=== PATIENT | female | born 1955 | race Caucasian/White ===

== ENCOUNTER 2023-01-06 20:00 | Inpatient (IN) | payer MEDICARE ==
[2023-01-06] MEDS ORDERED: SODIUM CHLORIDE 0.9% 1,000 ML IV ONE (20:21)
--- NOTE | 2023-01-06 20:37 | ED ---
General Adult HPI - General Chief complaint: Recheck/Abnormal Lab/Rx Stated complaint: Lab Recheck Time Seen by Provider: 01/06/23 20:16 Source: patient, EMS Mode of arrival: EMS Limitations: no limitations - History of Present Illness Initial comments: Sondra is a 67-year-old female who presents to the ER as a transfer from outside hospital. Patient was apparently found on her kitchen floor by her this morning. Patient seemed confused and she was taken to the outside hospital for evaluation where she underwent extensive testing including labs head CT and was found to have some significant electrolyte abnormalities. Considering these abn ormalities of his recommend she be transferred here for evaluation. Patient does note that she had a GI illness on Saturday and Saturday she was having diarrhea and not eating or drinking much. She hasn't had persistent symptoms today however does feel generally weak and unwell. - Related Data Home Medications Medication Instructions Recorded Confirmed ALPRAZolam [Xanax] 1 mg PO TID 01/06/23 01/06/23 Anastrozole 1 mg PO DAILY 01/06/23 01/06/23 Aspirin 81 mg PO DAILY 01/06/23 01/06/23 Atorvastatin [Lipitor] 80 mg PO DAILY 01/06/23 01/06/23 Chlorthalidone 25 mg PO DAILY 01/06/23 01/06/23 Metoprolol Succinate [Toprol XL] 50 mg PO DAILY 01/06/23 01/06/23 Omeprazole 20 mg PO DAILY 01/06/23 01/06/23 Potassium Chloride ER [K-Dur 10] 10 meq PO DAILY 01/06/23 01/06/23 Sertraline [Zoloft] 150 mg PO DAILY 01/06/23 01/06/23 amLODIPine [Norvasc] 10 mg PO DAILY 01/06/23 01/06/23 busPIRone HCL 15 mg PO TID 01/06/23 01/06/23 lisinopriL 40 mg PO DAILY 01/06/23 01/06/23 Allergies Allergy/AdvReac Type Severity Reaction Status Date / Time amoxicillin Allergy Anaphylaxis Verified 01/06/23 21:50 ampicillin Allergy Anaphylaxis Verified 01/06/23 21:50 Review of Systems ROS Statement: Those systems with pertinent positive or pertinent negative responses have been documented in the HPI. ROS Other: All systems not noted in ROS Statement are negative. Past Medical History Past Medical History: Hypertension Additional Past Medical History / Comment(s): low potassium History of Any Multi-Drug Resistant Organisms: None Reported Past Surgical History: Cholecystectomy Past Psychological History: Anxiety Smoking Status: Current every day smoker Past Alcohol Use History: None Reported Past Drug Use History: None Reported General Exam Limitations: no limitations Head exam: Present: atraumatic, normocephalic Eye exam: Present: normal appearance ENT exam: Present: normal exam Neck exam: Present: normal inspection Respiratory exam: Absent: respiratory distress Cardiovascular Exam: Present: regular rate GI/Abdominal exam: Present: soft Extremities exam: Present: normal inspection Neurological exam: Present: alert, oriented X3 Psychiatric exam: Present: normal affect, normal mood Skin exam: Present: warm, dry Course Vital Signs 01/06/23 01/06/23 20:06 22:41 Temperature 98.2 F Pulse Rate 72 73 Respiratory 18 18 Rate Blood Pressure 142/88 113/70 O2 Sat by Pulse 96 95 Oximetry EKG Findings - EKG Comments: EKG Findings:: EKG obtained due to lab abnormalities EKG obtained at 2101, rate is 68 rhythm is sinus MN 170 QRS 110 QTC 471 there are no acute ST elevations or depressions are is no evidence of acute ischemia or infarction. Medical Decision Making - Medical Decision Making Was pt. sent in by a medical professional or institution (KAHLIL Bryan, MDS MANAGER, urgent care, hospital, or shelter...) When possible be specific @ -Yes, transfer from [place] Did you speak to anyone other than the patient for history (EMS, parent, family, police, friend...)? What history was obtained from this source @ -Transferring Physician, EMS, Did you review nursing and triage notes (agree or disagree)? Why? @ -I reviewed and agree with nursing and triage notes Were old charts reviewed (outside hosp., previous admission, EMS record, old EKG, old radiological studies, urgent care reports/EKG's, shelter records)? Report findings @ -No old charts were reviewed Differential Diagnosis (chest pain, altered mental status, abdominal pain women, abdominal pain men, vaginal bleeding, weakness, fever, dyspnea, syncope, headache, dizziness, GI bleed, back pain, seizure, CVA, palpatations, mental health, musculoskeletal)? @ -Differential Altered Mental Status: Hypoglycemia, DKA, hypercapnia, ETOH, overdose, CO poisoning, trauma, myxedema coma, HTN encephalopathy, infection, encephalitis, psychosis, intercranial hemorrhage, hepatic encephalopathy, meningitis, CVA, this is not meant to be an all-inclusive list EKG interpreted by me (3pts min.). @ -As above X-rays interpreted by me (1pt min.). @ -None done CT interpreted by me (1pt min.). @ -Outside CT revealed no acute findings U/S interpreted by me (1pt. min.). @ -None done What testing was considered but not performed or refused? (CT, X-rays, U/S, labs)? Why? @ -None What meds were considered but not given or refused? Why? @ -None Did you discuss the management of the patient with other professionals (professionals i.e. , PA, MDS MANAGER, lab, RT, psych nurse, social service technician, clerical adviser, teacher, aoc airspace control officer, patient case coordinator)? Give summary @ -Discussed with transferring physician as well as accepting physician Dr. Russell Was smoking cessation discussed for >3mins.? @ -No Was critical care preformed (if so, how long)? @ -Yes Were there social determinants of health that impacted care today? How? (Homelessness, low income, unemployed, alcoholism, drug addiction, transportation, low edu. Level, literacy, decrease access to med. care, [facility], rehab)? @ -No Was there de-escalation of care discussed even if they declined (Discuss DNR or withdrawal of care, Hospice)? DNR status @ -No What co-morbidities impacted this encounter? (DM, HTN, Smoking, COPD, CAD, Cancer, CVA, ARF, Chemo, Hep., AIDS, mental health diagnosis, sleep apnea, morbid obesity)? @ -None Was patient admitted / discharged? Hospital course, mention meds given and route, prescriptions, significant lab abnormalities, going to OR and other pertinent info. @ -Admit Patient was transferred from outside facility where she was found to have altered mental status and significant electrolyte abnormalities. High suspicion that the patient had a seizure secondary to hyponatremia. Outside facility sodium was 117 and potassium was 2.2 she received IV replacements and was transferred here. Upon arrival repeat labs were obtained, sodium is only improved minimally is now 119, potassium has improved. Transaminitis is worsening. These results were discussed with Dr. Russell who agrees with plan for admission, gentle IV hydration for slow correction of hyponatremia and hypokalemia. Admission with consult to GI and nephrology. Undiagnosed new problem with uncertain prognosis? @ -Yes Drug Therapy requiring intensive monitoring for toxicity (Heparin, Nitro, I nsulin, Cardizem)? @ -No Were any procedures done? @ -No Diagnosis/symptom? @ -Hyponatremia, hypokalemia, hypochloremia Acute, or Chronic, or Acute on Chronic? @ -Acute Uncomplicated (without systemic symptoms) or Complicated (systemic symptoms)? @ -Located Side effects of treatment? @ -No Exacerbation, Progression, or Severe Exacerbation? @ -No Poses a threat to life or bodily function? How? (Chest pain, USA, CO, pneumonia, PE, COPD, DKA, ARF, appy, cholecystitis, CVA, Diverticulitis, Homicidal, Suicidal, threat to staff... and all critical care pts) @ -Yes, resulting in neurologic changes, seizure - Lab Data Result diagrams: 01/06/23 20:38 01/06/23 21:41 Lab Results 01/06/23 01/06/23 01/06/23 Range/Units 20:38 20:38 20:38 WBC 13.3 H (3.8-10.6) k/uL RBC 4.45 (3.80-5.40) m/uL Hgb 14.0 (11.4-16.0) gm/dL Hct 38.6 (34.0-46.0) % MCV 86.8 (80.0-100.0) fL MCH 31.5 (25.0-35.0) pg MCHC 36.3 (31.0-37.0) g/dL RDW 12.3 (11.5-15.5) % Plt Count 357 (150-450) k/uL MPV 7.0 Neutrophils % 84 % Lymphocytes % 9 % Monocytes % 6 % Eosinophils % 1 % Basophils % 0 % Neutrophils # 11.2 H (1.3-7.7) k/uL Lymphocytes # 1.2 (1.0-4.8) k/uL Monocytes # 0.8 (0-1.0) k/uL Eosinophils # 0.1 (0-0.7) k/uL Basophils # 0.0 (0-0.2) k/uL Hyperchromasia Moderate PT 11.2 (10.0-12.5) sec INR 1.0 (<1.2) APTT 24.4 (22.0-30.0) sec Sodium (137-145) mmol/L Potassium (3.5-5.1) mmol/L Chloride (98-107) mmol/L Carbon Dioxide (22-30) mmol/L Anion Gap mmol/L BUN (7-17) mg/dL Creatinine (0.52-1.04) mg/dL Est GFR (CKD-EPI)AfAm (>60 ml/min/1.73 sqM) Est GFR (CKD-EPI)NonAf (>60 ml/min/1.73 sqM) Glucose (74-99) mg/dL Calcium (8.4-10.2) mg/dL Magnesium (1.6-2.3) mg/dL Total Bilirubin (0.2-1.3) mg/dL AST (14-36) U/L ALT (4-34) U/L Alkaline Phosphatase (38-126) U/L Ammonia (<30) umol/L Troponin I (0.000-0.034) ng/mL Total Protein (6.3-8.2) g/dL Albumin (3.5-5.0) g/dL Urine Opiates Screen Not Detected (NotDetected) Ur Oxycodone Screen Not Detected (NotDetected) Urine Methadone Screen Not Detected (NotDetected) Ur Propoxyphene Screen Not Detected (NotDetected) Ur Barbiturates Screen Not Detected (NotDetected) U Tricyclic Antidepress Not Detected (NotDetected) Ur Phencyclidine Scrn Not Detected (NotDetected) Ur Amphetamines Screen Not Detected (NotDetected) U Methamphetamines Scrn Not Detected (NotDetected) U Benzodiazepines Scrn Not Detected (NotDetected) Urine Cocaine Screen Not Detected (NotDetected) U Marijuana (THC) Screen Not Detected (NotDetected) Serum Alcohol mg/dL 01/06/23 01/06/23 01/06/23 Range/Units 20:38 21:41 21:41 WBC (3.8-10.6) k/uL RBC (3.80-5.40) m/uL Hgb (11.4-16.0) gm/dL Hct (34.0-46.0) % MCV (80.0-100.0) fL MCH (25.0-35.0) pg MCHC (31.0-37.0) g/dL RDW (11.5-15.5) % Plt Count (150-450) k/uL MPV Neutrophils % % Lymphocytes % % Monocytes % % Eosinophils % % Basophils % % Neutrophils # (1.3-7.7) k/uL Lymphocytes # (1.0-4.8) k/uL Monocytes # (0-1.0) k/uL Eosinophils # (0-0.7) k/uL Basophils # (0-0.2) k/uL Hyperchromasia PT (10.0-12.5) sec INR (<1.2) APTT (22.0-30.0) sec Sodium 119 L* (137-145) mmol/L Potassium 3.2 L (3.5-5.1) mmol/L Chloride 80 L (98-107) mmol/L Carbon Dioxide 34 H (22-30) mmol/L Anion Gap 5 mmol/L BUN 24 H (7-17) mg/dL Creatinine 0.50 L (0.52-1.04) mg/dL Est GFR (CKD-EPI)AfAm >90 (>60 ml/min/1.73 sqM) Est GFR (CKD-EPI)NonAf >90 (>60 ml/min/1.73 sqM) Glucose 112 H (74-99) mg/dL Calcium 9.6 (8.4-10.2) mg/dL Magnesium 1.7 (1.6-2.3) mg/dL Total Bilirubin 0.8 (0.2-1.3) mg/dL AST 960 H (14-36) U/L ALT 388 H (4-34) U/L Alkaline Phosphatase 70 (38-126) U/L Ammonia 21 (<30) umol/L Troponin I 0.032 (0.000-0.034) ng/mL Total Protein 6.5 (6.3-8.2) g/dL Albumin 3.9 (3.5-5.0) g/dL Urine Opiates Screen (NotDetected) Ur Oxycodone Screen (NotDetected) Urine Methadone Screen (NotDetected) Ur Propoxyphene Screen (NotDetected) Ur Barbiturates Screen (NotDetected) U Tricyclic Antidepress (NotDetected) Ur Phencyclidine Scrn (NotDetected) Ur Amphetamines Screen (NotDetected) U Methamphetamines Scrn (NotDetected) U Benzodiazepines Scrn (NotDetected) Urine Cocaine Screen (NotDetected) U Marijuana (THC) Screen (NotDetected) Serum Alcohol <10 mg/dL - EKG Data -: EKG Interpreted by Me Disposition Clinical Impression: Hypokalemia, Hyponatremia, Altered mental state, Hypochloremia, Transaminitis Disposition: ADMITTED IP TO THIS [facility] Condition: Serious Is patient prescribed a controlled substance at d/c from ED?: No Referrals: Sarah Bonilla FNPBC [Primary Care Provider] - 1-2 days
--- NOTE | 2023-01-06 20:57 | XR ---
EXAMINATION TYPE: XR chest 2V DATE OF EXAM: 01/06/2023 8:53 PM CLINICAL INDICATION:Female, 67 years old with history of altered mental status; COMPARISON: None TECHNIQUE: XR chest 2V Frontal and lateral views of the chest. FINDINGS: Lungs/Pleura: There is flattening of the diaphragm with increased lucency of the lungs. No evidence o f pneumothorax, pleural effusion or focal consolidation. Pulmonary vascularity: Unremarkable. Heart/mediastinum: Cardiomediastinal silhouette is unremarkable. Musculoskeletal: No acute osseous pathology. Scoliosis changes of the spine. IMPRESSION: 1. No acute cardiopulmonary disease process. 2. COPD changes.
[2023-01-06 21:26] LABS: Basophils % (A) 0 %; Eosinophils # (A) 0.1 k/uL (0-0.7); Eosinophils % (A) 1 %; HCT 38.6 % (34.0-46.0); Hyperchromasia Moderate; Lymphocytes # (A) 1.2 k/uL (1.0-4.8); Lymphocytes % (A) 9 %; MCH 31.5 pg (25.0-35.0); MCHC 36.3 g/dL (31.0-37.0); MCV 86.8 fL (80.0-100.0); Monocytes # (A) 0.8 k/uL (0-1.0); Monocytes % (A) 6 %; Neutrophils # (A) 11.2 k/uL (1.3-7.7); Neutrophils % (A) 84 %; Platelet Count 357 k/uL (150-450); RBC 4.45 m/uL (3.80-5.40); RDW 12.3 % (11.5-15.5); WBC 13.3 k/uL (3.8-10.6)
[2023-01-06 21:39] LABS: Amphetamine Screen,Urine Not Detected (NotDetected); Barbiturate Screen,Urine Not Detected (NotDetected); Benzodiazepines Screen,Urine Not Detected (NotDetected); Cocaine Screen,Urine Not Detected (NotDetected); Methadone Screen, Urine Not Detected (NotDetected); Opiate Screen,Urine Not Detected (NotDetected); Oxycodone Screen, Urine Not Detected (NotDetected); Phencyclidine Screen,Urine Not Detected (NotDetected); Tricyclic Antidepressant,Urine Not Detected (NotDetected); Urn Cannabinoid Scrn Not Detected (NotDetected)
[2023-01-06 21:57] LABS: Partial Thromboplastin Time 24.4 sec (22.0-30.0); Prothrombin Time 11.2 sec (10.0-12.5)
[2023-01-06 22:31] LABS: ALT 388 U/L (4-34); African American GFR (CKD) >90 (>60 ml/min/1.73 sqM); Albumin 3.9 g/dL (3.5-5.0); Alcohol <10 mg/dL; Alkaline Phosphatase 70 U/L (38-126); Anion Gap 5 mmol/L; Blood Urea Nitrogen 24 mg/dL (7-17); Calcium 9.6 mg/dL (8.4-10.2); Carbon Dioxide 34 mmol/L (22-30); Chloride 80 mmol/L (98-107); Glucose 112 mg/dL (74-99); Magnesium 1.7 mg/dL (1.6-2.3); Non-African American GFR(CKD) >90 (>60 ml/min/1.73 sqM); Potassium 3.2 mmol/L (3.5-5.1); Total Bilirubin 0.8 mg/dL (0.2-1.3); Total Protein 6.5 g/dL (6.3-8.2)
[2023-01-06 22:43] LABS: AST 960 U/L (14-36); Sodium 119 mmol/L (137-145)
[2023-01-06] MEDS ORDERED: NALOXONE 0.4 MG/ML 1 ML VIAL IV PRN (22:57)
[2023-01-06] MEDS: POTASSIUM CHLORIDE 10 MEQ in WATER FOR INJECTION 1 100ML.BAG IVPB SCH (23:35)
[2023-01-07] MEDS: POTASSIUM CHLORIDE 10 MEQ in WATER FOR INJECTION 1 100ML.BAG IVPB SCH ×2 (00:43→03:02)
[2023-01-07 05:45] LABS: ALT 368 U/L (4-34); African American GFR (CKD) >90 (>60 ml/min/1.73 sqM); Albumin 3.9 g/dL (3.5-5.0); Alkaline Phosphatase 49 U/L (38-126); Anion Gap 7 mmol/L; Blood Urea Nitrogen 17 mg/dL (7-17); Calcium 9.3 mg/dL (8.4-10.2); Carbon Dioxide 32 mmol/L (22-30); Chloride 83 mmol/L (98-107); Glucose 92 mg/dL (74-99); Non-African American GFR(CKD) >90 (>60 ml/min/1.73 sqM); Potassium 2.9 mmol/L (3.5-5.1); Sodium 122 mmol/L (137-145); Total Bilirubin 0.8 mg/dL (0.2-1.3); Total Protein 6.3 g/dL (6.3-8.2)
[2023-01-07 05:53] LABS: AST 785 U/L (14-36)
[2023-01-07] MEDS ORDERED: Potassium Replacement Protocol 1 EACH MISC MISCELLANE PRN (05:56)
[2023-01-07] MEDS: POTASSIUM CHLORIDE ER 20 MEQ TAB.ER PO SCH ×3 (06:04→09:28)
[2023-01-07] MEDS ORDERED: ONDANSETRON 4 MG/2 ML VIAL IVP PRN (09:41)
[2023-01-07 11:05] LABS: Hepatitis A Antibody IgM Nonreactive; Hepatitis B Core IgM Nonreactive; Hepatitis B Surface Antigen Nonreactive; Hepatitis C IgG Antibody Nonreactive
[2023-01-07] MEDS: SODIUM CHLORIDE 0.9% 1,000 ML IV SCH ×3 (11:56→21:45)
[2023-01-07] MEDS: POTASSIUM CHLORIDE ER 10 MEQ TAB.ER.PRT PO SCH (11:56)
[2023-01-07] MEDS: amLODIPine 10 MG TAB PO SCH (11:58)
[2023-01-07] MEDS: PANTOPRAZOLE 40 MG TABLET PO SCH (11:58)
[2023-01-07] MEDS: ASPIRIN 81 MG PO SCH (11:58)
[2023-01-07] MEDS: METOPROLOL SUCCINATE (ER) 50 MG TAB.ER.24H PO SCH (11:58)
--- NOTE | 2023-01-07 11:58 | P.NPCON ---
History of Present Illness - Reason for Consult hyponatremia - History of Present Illness Patient is a 67-year-old female who was transferred from an outside facility. Patient was brought into the hospital due to mental status changes. Patient was apparently found by her on the floor. She has been confused. Patient complained of increased weakness but is not able to give a detailed history. Patient denied any history of nausea vomiting but did admit to having had diarrhea for about 2 days. No history of fever Patient is maintained on chlorthalidone which she has been taking for about 1 ye ar according to the patient. Patient is noted to have a serum sodium of 119. She received IV fluids and sodium has increased to 122. Systolic blood pressure around 102-120 mmHg. Review of Systems As per HPI Past Medical History Past Medical History: Hypertension Additional Past Medical History / Comment(s): low potassium History of Any Multi-Drug Resistant Organisms: None Reported Past Surgical History: Cholecystectomy Past Psychological History: Anxiety Smoking Status: Current every day smoker Past Alcohol Use History: None Reported Past Drug Use History: None Reported Medications and Allergies Home Medications Medication Instructions Recorded Confirmed Type ALPRAZolam [Xanax] 1 mg PO TID 01/06/23 01/06/23 History Anastrozole 1 mg PO DAILY 01/06/23 01/06/23 History Aspirin 81 mg PO DAILY 01/06/23 01/06/23 History Atorvastatin [Lipitor] 80 mg PO DAILY 01/06/23 01/06/23 History Chlorthalidone 25 mg PO DAILY 01/06/23 01/06/23 History Metoprolol Succinate [Toprol XL] 50 mg PO DAILY 01/06/23 01/06/23 History Omeprazole 20 mg PO DAILY 01/06/23 01/06/23 History Potassium Chloride ER [K-Dur 10] 10 meq PO DAILY 01/06/23 01/06/23 History Sertraline [Zoloft] 150 mg PO DAILY 01/06/23 01/06/23 History amLODIPine [Norvasc] 10 mg PO DAILY 01/06/23 01/06/23 History busPIRone HCL 15 mg PO TID 01/06/23 01/06/23 History lisinopriL 40 mg PO DAILY 01/06/23 01/06/23 History Allergies Allergy/AdvReac Type Severity Reaction Status Date / Time amoxicillin Allergy Anaphylaxis Verified 01/06/23 21:50 ampicillin Allergy Anaphylaxis Verified 01/06/23 21:50 Physical Exam Vitals: Vital Signs Temp Pulse Pulse Resp BP BP Pulse Ox 01/07/23 08:24 66 20 131/84 95 01/07/23 04:00 98.1 F 71 14 131/77 95 01/07/23 00:00 67 16 102/65 96 01/06/23 23:36 67 18 124/76 94 L 01/06/23 22:41 73 18 113/70 95 01/06/23 20:06 98.2 F 72 18 142/88 96 Intake and Output 01/06/23 01/07/23 01/07/23 22:59 06:59 14:59 Intake Total 825 Balance 825 Intake: Intake, IV Titration 825 Amount Potassium Chloride 10 meq 300 In Water For Injection 1 100ml.bag @ 100 mls/hr IVPB Q1H [facility] Rx#: [id number] Sodium Chloride 0.9% 1, 525 000 ml @ 75 mls/hr IV . [id number] ONE Rx#:[id number] Other: Voiding Method Toilet # Voids 3 Weight 52.163 kg Patient is awake, comfortable, in no acute distress Examination of the heart S1 and S2 Examination of the lungs bilateral breath sounds are heard Abdomen is soft nontender Examination of lower extremities shows no evidence of edema CONFERENCE PRODUCER exam grossly intact. Patient is answering questions appropriately. Results - Lab Results Most recent lab results Calcium 9.3 mg/dL (8.4-10.2) 01/07/23 04:44 Magnesium 1.7 mg/dL (1.6-2.3) 01/06/23 21:41 01/06/23 20:38 01/07/23 10:45 Assessment and Plan Assessment: 1. Hyponatremia appears hypovolemic and improved with normal saline. Patient will also maintained on chlorthalidone which is currently on hold. Urine osmolality and urine sodium is pending. 2. Hypokalemia secondary to diarrhea, diuretics and decrease intake, status post replacement 3. Metabolic alkalosis secondary to volume contraction and diuretics 4. Elevated liver enzymes possibly shock liver. Patient was maintained on statins which are currently on hold. Plan: Continue with saline as serum sodium improved with saline administration initially. Check random urine sodium and urine osmolality Check random cortisol level Continue to hold chlorthalidone. Repeat potassium later this afternoon. Next Thank you for the consultation. We will continue to follow the patient with you during her hospitalization.
--- NOTE | 2023-01-07 13:34 | P.HPIM ---
History of Present Illness H&P Date: 01/07/23 Chief Complaint: Confusion * 67-year-old lady with past medical history significant for hypertension, history of breast cancer presented to the emergency department with episode of confusion. Patient was apparently at home when she was found on the floor by her . And confused. Patient had complaints of increased weakness. Patient denies passing out. She does mention that she does remember the events from home however she does not feel she fell. Patient denies any history of headache, nausea, vomiting, diarrhea abdominal pain. * Workup initiated in ER included basic metabolic panel which showed significant hyponatremia sodium of 119, potassium of 3.2 BUN of 24 creatinine 0.5 * She was noted to have significant elevation in liver profile AST 388 AST of 960 * Troponin obtained was within normal limits * TSH and cortisol levels within normal limits urine drug screen negative * she at time of evaluation in ER was alert and oriented to person place and situation mentation had improved patient was requesting her Xanax REVIEW OF SYSTEMS: Fall, confusion CONSTITUTIONAL: No fever, no malaise, no fatigue. HEENT: No recent visual problems or hearing problems. Denied any sore throat. CARDIOVASCULAR: No chest pain, orthopnea, PND, no palpitations, no syncope. PULMONARY: No shortness of breath, no cough, no hemoptysis. GASTROINTESTINAL: No diarrhea, no nausea, no vomiting, no abdominal pain. NEUROLOGICAL: No headaches, no weakness, no numbness. HEMATOLOGICAL: Denies any bleeding or petechiae. GENITOURINARY: Denies any burning micturition, frequency, or urgency. MUSCULOSKELETAL/RHEUMATOLOGICAL: Denies any joint pain, swelling, or any muscle pain. ENDOCRINE: Denies any polyuria or polydipsia. PHYSICAL EXAMINATION: GENERAL: The patient is alert and oriented x 3, Well developed, well nourished. HEENT: Pupils are round and equally reacting to light. EOMI.. CARDIOVASCULAR: S1 and S2 present. No murmurs, rubs, or gallops. PULMONARY: Chest is clear to auscultation, no wheezing or crackles. ABDOMEN: Soft, nontender, nondistended, normoactive bowel sounds. No palpable organomegaly. MUSCULOSKELETAL: No joint swelling or deformity. EXTREMITIES: No cyanosis, clubbing, or pedal edema. NEUROLOGICAL: Gross neurological examination did not reveal any focal deficits. SKIN: No rashes. Past Medical History Past Medical History: Hypertension Additional Past Medical History / Comment(s): low potassium History of Any Multi-Drug Resistant Organisms: None Reported Past Surgical History: Cholecystectomy Past Psychological History: Anxiety Smoking Status: Current every day smoker Past Alcohol Use History: None Reported Past Drug Use History: None Reported Medications and Allergies Home Medications Medication Instructions Recorded Confirmed Type ALPRAZolam [Xanax] 1 mg PO TID 01/06/23 01/06/23 History Anastrozole 1 mg PO DAILY 01/06/23 01/06/23 History Aspirin 81 mg PO DAILY 01/06/23 01/06/23 History Atorvastatin [Lipitor] 80 mg PO DAILY 01/06/23 01/06/23 History Chlorthalidone 25 mg PO DAILY 01/06/23 01/06/23 History Metoprolol Succinate [Toprol XL] 50 mg PO DAILY 01/06/23 01/06/23 History Omeprazole 20 mg PO DAILY 01/06/23 01/06/23 History Potassium Chloride ER [K-Dur 10] 10 meq PO DAILY 01/06/23 01/06/23 History Sertraline [Zoloft] 150 mg PO DAILY 01/06/23 01/06/23 History amLODIPine [Norvasc] 10 mg PO DAILY 01/06/23 01/06/23 History busPIRone HCL 15 mg PO TID 01/06/23 01/06/23 History lisinopriL 40 mg PO DAILY 01/06/23 01/06/23 History Allergies Allergy/AdvReac Type Severity Reaction Status Date / Time amoxicillin Allergy Anaphylaxis Verified 01/06/23 21:50 ampicillin Allergy Anaphylaxis Verified 01/06/23 21:50 Physical Exam Vitals: Vital Signs Temp Pulse Pulse Resp BP BP Pulse Ox 01/07/23 12:03 67 20 128/70 96 01/07/23 08:24 66 20 131/84 95 01/07/23 04:00 98.1 F 71 14 131/77 95 01/07/23 00:00 67 16 102/65 96 01/06/23 23:36 67 18 124/76 94 L 01/06/23 22:41 73 18 113/70 95 01/06/23 20:06 98.2 F 72 18 142/88 96 Intake and Output 10/22/23 10/23/23 10/23/23 22:59 06:59 14:59 Intake Total 825 Balance 825 Intake: Intake, IV Titration 825 Amount Potassium Chloride 10 meq 300 In Water For Injection 1 100ml.bag @ 100 mls/hr IVPB Q1H [facility] Rx#: [id number] Sodium Chloride 0.9% 1, 525 000 ml @ 75 mls/hr IV . [id number] ONE Rx#:[id number] Other: Voiding Method Toilet # Voids 3 Weight 52.163 kg Results CBC & Chem 7: 01/06/23 20:38 01/07/23 10:45 Labs: Abnormal Lab Results - Last 24 Hours (Table) 01/06/23 01/06/23 01/07/23 Range/Units 20:38 21:41 04:44 WBC 13.3 H (3.8-10.6) k/uL Neutrophils # 11.2 H (1.3-7.7) k/uL Sodium 119 L* 122 L (137-145) mmol/L Potassium 3.2 L 2.9 L (3.5-5.1) mmol/L Chloride 80 L 83 L (98-107) mmol/L Carbon Dioxide 34 H 32 H (22-30) mmol/L BUN 24 H (7-17) mg/dL Creatinine 0.50 L 0.49 L (0.52-1.04) mg/dL Glucose 112 H (74-99) mg/dL AST 960 H 785 H (14-36) U/L ALT 388 H 368 H (4-34) U/L 01/07/23 Range/Units 10:45 WBC (3.8-10.6) k/uL Neutrophils # (1.3-7.7) k/uL Sodium 122 L (137-145) mmol/L Potassium (3.5-5.1) mmol/L Chloride (98-107) mmol/L Carbon Dioxide (22-30) mmol/L BUN (7-17) mg/dL Creatinine (0.52-1.04) mg/dL Glucose (74-99) mg/dL AST (14-36) U/L ALT (4-34) U/L Thrombosis Risk Factor Assmnt - DVT/VTE Prophylaxis DVT/VTE Prophylaxis: Pharmacologic Prophylaxis ordered, Mechanical Prophylaxis ordered Assessment and Plan Assessment: Assessment and plan * Syncopal episode with hyponatremia * Elevated liver profile * Hypertension * History of anxiety * History of breast cancer status post treatment * In regards to acute hyponatremia patient started on IV fluids, nephrology consulted continue to monitor electrolyte stock hanger for worsening or overcorrection of sodium levels * In regards to hypertension continue metoprolol, chlorthalidone placed on hold since it can contribute to hyponatremia * In regards to elevated liver profile, hepatitis screen negative, ultrasound abdomen ordered gastroenterology consulted will follow-up on CMP and PT/INR levels * In regards to anxiety continue patient on BuSpar, Zoloft and Xanax * Need physical therapy occupational therapy evaluation * Status is full code
[2023-01-07] MEDS: ALPRAZolam 1 MG TAB PO SCH ×3 (13:50→21:43)
--- NOTE | 2023-01-07 14:06 | US ---
EXAMINATION TYPE: US abdomen limited DATE OF EXAM: 01/07/2023 COMPARISON: NONE CLINICAL INDICATION: Female, 67 years old with history of Transaminitis; Transaminitis. Hx cholecyste ctomy. *RUQ for liver evaluation per RN. TECHNIQUE: Multiple sonographic images of the right upper quadrant are obtained. FINDINGS: EXAM MEASUREMENTS: Liver Length: 16.1 cm Gallbladder Wall: Surgically absent. CBD: 0.49 cm Right Kidney: 11.1 x 5.6 x 4.5 cm SLAT BASKET MAKER NOTES: Exam is limited due to gas. Pancreas: Slightly limited visibility. Liver: Appears coarse in echotexture. Gallbladder: Surgically absent. Evidence for sonographic Izquierdo's sign: No CBD: Appears wnl Right Kidney: *Complex area seen at mid: 1.2 x 0.9 x 1.0 cm. *Hyperechoic focus seen at mid: 0.2 x 0.2 x 0.4 cm. Incidental finding: proximal and mid aorta appear ectatic, proximal segment measures = 2.9 x 2.9 cm IMPRESSION: 1. Coarsened echotexture to liver. Correlate with serum markers for hepatocellular disease. No evide nce for ductal dilation. 2. Right renal complex cyst with septation. 3. Right renal cortical calcification. 4. Abdominal aortic fusiform dilation measuring up to 2.9 cm
[2023-01-07] MEDS ORDERED: ALPRAZolam 1 MG TAB PO SCH (16:00)
[2023-01-07] MEDS: NICOTINE 21MG/24HR PATCH TRANSDERM SCH (18:45)
[2023-01-07] MEDS: busPIRone HCl 10 MG TAB PO SCH ×2 (18:45→21:43)
[2023-01-08] MEDS: ALPRAZolam 1 MG TAB PO SCH ×3 (08:39→21:34)
[2023-01-08] MEDS: METOPROLOL SUCCINATE (ER) 50 MG TAB.ER.24H PO SCH (08:39)
[2023-01-08] MEDS: POTASSIUM CHLORIDE ER 10 MEQ TAB.ER.PRT PO SCH (08:39)
[2023-01-08] MEDS: busPIRone HCl 10 MG TAB PO SCH ×3 (08:39→21:38)
[2023-01-08] MEDS: PANTOPRAZOLE 40 MG TABLET PO SCH (08:39)
[2023-01-08] MEDS: ASPIRIN 81 MG PO SCH (08:39)
[2023-01-08] MEDS: ANASTROZOLE 1 MG TAB PO SCH (08:40)
[2023-01-08] MEDS: amLODIPine 10 MG TAB PO SCH (08:40)
[2023-01-08] MEDS: SERTRALINE 100 MG TAB PO SCH (08:40)
[2023-01-08] MEDS: ENOXAPARIN 40 MG/0.4 ML SYRINGE SQ SCH (08:40)
[2023-01-08] MEDS: NICOTINE 21MG/24HR PATCH TRANSDERM SCH (08:41)
[2023-01-08 10:52] LABS: Basophils # (A) 0.01 X 10*3/uL (0.00-0.10); Basophils % (A) 0.1 %; Eosinophils % (A) 1.4 %; HCT 37.3 % (37.2-46.3); HGB 13.6 d/dL (12.0-15.0); Lymphocytes # (A) 1.03 X 10*3/uL (0.90-5.00); Lymphocytes % (A) 14.3 %; MCH 31.6 pg (27.0-32.0); MCHC 36.5 d/dL (32.0-37.0); MCV 86.7 FL (80.0-97.0); Mean Platelet Volume 8.4 FL (9.5-12.2); Monocytes # (A) 0.79 X 10*3/uL (0.20-1.00); Monocytes % (A) 10.9 %; NRBC Per 100 WBC 0 X 10*3/uL (0.00-0.01); Neutrophils # (A) 5.27 X 10*3/uL (1.80-7.70); Platelet Count 373 X 10*3/uL (140-440); RDW 12.7 % (11.5-14.5); WBC 7.22 X 10*3/uL (4.50-10.00)
[2023-01-08 11:05] LABS: ALT 298 U/L (8-44); AST 366 U/L (13-35); Albumin/Globulin Ratio 2.22 Ratio (1.60-3.17); Alkaline Phosphatase 46 U/L (41-126); Calcium 9.1 mg/dL (8.7-10.3); Chloride 94 mmol/L (96-109); Globulin 1.8 d/dL (1.6-3.3); Glucose 94 mg/dL (70-110); Sodium 133 mmol/L (135-145); Total Bilirubin 0.6 mg/dL (0.3-1.2); Total Protein 5.8 d/dL (6.2-8.2)
[2023-01-08 11:11] LABS: Potassium 3.3 mmol/L (3.5-5.1)
[2023-01-08] MEDS: SODIUM CHLORIDE 0.9% 1,000 ML IV SCH (11:41)
--- NOTE | 2023-01-08 12:01 | P.PN ---
Subjective Patient is seen for follow-up for hyponatremia which is hypovolemic and improved with normal saline. Serum sodium was 133 this morning and repeat level IV hours later was 128. Patient has been tolerating oral intake No diarrhea or vomiting. 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 - Labs CBC & Chem 7: 01/08/23 06:52 01/08/23 10:28 Labs: Abnormal Lab Results - Last 24 Hours (Table) 01/07/23 01/07/23 01/07/23 Range/Units 15:14 15:14 19:18 MPV (9.5-12.2) FL Sodium 123 L (137-145) mmol/L Potassium 3.1 L (3.5-5.1) mmol/L Chloride (96-109) mmol/L Carbon Dioxide (22-30) mmol/L Creatinine (0.6-1.5) mg/dL BUN/Creatinine Ratio (12.00-20.00) Ratio AST (13-35) U/L ALT (8-44) U/L Total Protein (6.2-8.2) d/dL Ur Random Sodium 25 L (40-220) mmol/L 01/08/23 01/08/23 01/08/23 Range/Units 06:52 06:52 10:28 MPV 8.4 L (9.5-12.2) FL Sodium 133 L 128 L (137-145) mmol/L Potassium 3.0 L 3.3 L (3.5-5.1) mmol/L Chloride 94 L 91 L (96-109) mmol/L Carbon Dioxide 32 H (22-30) mmol/L Creatinine 0.4 L (0.6-1.5) mg/dL BUN/Creatinine Ratio 30.00 H (12.00-20.00) Ratio AST 366 H (13-35) U/L ALT 298 H (8-44) U/L Total Protein 5.8 L (6.2-8.2) d/dL Ur Random Sodium (40-220) mmol/L Assessment and Plan Assessment: 1. Hyponatremia , hypovolemic and improved with normal saline. Patient was also maintained on chlorthalidone which is currently on hold. Urine osmolality to ATN urine sodium was 25. Sodium 133 this morning and dropped to 128 2. Hypokalemia secondary to diarrhea, diuretics and decrease intake, status post replacement 3. Metabolic alkalosis secondary to volume contraction and diuretics 4. Elevated liver enzymes possibly shock liver. Patient was maintained on statins which are currently on hold. Plan: DC IV fluids Sodium chloride tab 1 Repeat sodium this evening Encourage increased oral intake particularly protein Continue to hold off on chlorthalidone post discharge.
[2023-01-08] MEDS ORDERED: SODIUM CHLORIDE TAB 1 GM TAB PO STA (12:02)
--- NOTE | 2023-01-08 12:29 | P.PN ---
Subjective Progress Note Date: 01/08/23 * 67-year-old lady with past medical history significant for hypertension, history of breast cancer presented to the emergency department with episode of confusion. Patient was apparently at home when she was found on the floor by her . And confused. Patient had complaints of increased weakness. Patient denies passing out. She does mention that she does remember the events from home however she does not feel she fell. Patient denies any history of headache, nausea, vomiting, diarrhea abdominal pain. * Workup initiated in ER included basic metabolic panel which showed significant hyponatremia sodium of 119, potassium of 3.2 BUN of 24 creatinine 0.5 * She was noted to have significant elevation in liver profile AST 388 AST of 960 * Troponin obtained was within normal limits * TSH and cortisol levels within normal limits urine drug screen negative * she at time of evaluation in ER was alert and oriented to person place and situation mentation had improved patient was requesting her Xanax * 01/08/23: Patient seen and evaluated at bedside, mentation seems to have improved, patient is alert and oriented to person place and situation. Serum sodium levels improving as well. Noted to have persistent hypokalemia potassium replaced. Liver profile improvement. Ultrasound abdomen reviewed shows coarse echo resection of the liver incidental finding of complex renal cyst noted, abdominal aortic fusiform aneurysm 2.9 cm Will need outpatient follow-up with PCP Objective - Vital Signs Vital signs: Vital Signs Temp 98.8 F 01/08/23 11:50 Pulse 72 01/08/23 11:50 Resp 16 01/08/23 11:50 BP 112/76 01/08/23 11:50 Pulse Ox 96 01/08/23 11:50 FiO2 Intake & Output 01/07/23 01/08/23 01/08/23 18:59 06:59 18:59 Other: Voiding Method Toilet # Voids 1 2 - Exam PHYSICAL EXAMINATION: GENERAL: The patient is alert and oriented x 3, Well developed, well nourished. HEENT: Pupils are round and equally reacting to light. EOMI.. CARDIOVASCULAR: S1 and S2 present. No murmurs, rubs, or gallops. PULMONARY: Chest is clear to auscultation, no wheezing or crackles. ABDOMEN: Soft, nontender, nondistended, normoactive bowel sounds. No palpable organomegaly. MUSCULOSKELETAL: No joint swelling or deformity. EXTREMITIES: No cyanosis, clubbing, or pedal edema. NEUROLOGICAL: Gross neurological examination did not reveal any focal deficits. SKIN: No rashes. - Labs CBC & Chem 7: 01/08/23 06:52 01/08/23 10:28 Labs: Abnormal Lab Results - Last 24 Hours (Table) 01/07/23 01/07/23 01/07/23 Range/Units 15:14 15:14 19:18 MPV (9.5-12.2) FL Sodium 123 L (137-145) mmol/L Potassium 3.1 L (3.5-5.1) mmol/L Chloride (96-109) mmol/L Carbon Dioxide (22-30) mmol/L Creatinine (0.6-1.5) mg/dL BUN/Creatinine Ratio (12.00-20.00) Ratio AST (13-35) U/L ALT (8-44) U/L Total Protein (6.2-8.2) d/dL Ur Random Sodium 25 L (40-220) mmol/L 01/08/23 01/08/23 01/08/23 Range/Units 06:52 06:52 10:28 MPV 8.4 L (9.5-12.2) FL Sodium 133 L 128 L (137-145) mmol/L Potassium 3.0 L 3.3 L (3.5-5.1) mmol/L Chloride 94 L 91 L (96-109) mmol/L Carbon Dioxide 32 H (22-30) mmol/L Creatinine 0.4 L (0.6-1.5) mg/dL BUN/Creatinine Ratio 30.00 H (12.00-20.00) Ratio AST 366 H (13-35) U/L ALT 298 H (8-44) U/L Total Protein 5.8 L (6.2-8.2) d/dL Ur Random Sodium (40-220) mmol/L Assessment and Plan Assessment: Assessment and plan * Syncopal episode with hyponatremia * Elevated liver profile * Hypertension * History of anxiety * History of breast cancer status post treatment * In regards to acute hyponatremia patient started on IV fluids, nephrology consulted continue to monitor electrolyte switch maker for worsening or overcorrection of sodium levels, Na 119> 123> 128 * In regards to hypertension continue metoprolol, chlorthalidone placed on hold since it can contribute to hyponatremia * In regards to elevated liver profile, hepatitis screen negative, ultrasound abdomen completed, reviewed. Will need outpatient follow-up with PCP liver profile trending down PT/INR within normal limits continue to follow up on synthetic function of liver avoid hepatotoxic medications * In regards to anxiety continue patient on BuSpar, Zoloft and Xanax * Need physical therapy occupational therapy evaluation * Status is full code
[2023-01-08] MEDS: POTASSIUM CHLORIDE 10 MEQ in WATER FOR INJECTION 1 100ML.BAG IVPB SCH ×2 (12:53→14:09)
--- NOTE | 2023-01-08 12:54 | P.GSCN ---
History of Present Illness Consult date: 01/08/23 History of present illness: CHIEF COMPLAINT: Confusion HISTORY OF PRESENT ILLNESS: This is a 68-year-old female who was transferred from outside facility. She's found on her kitchen floor by her with evidence of confusion and altered mental status. Patient had nausea, vomiting and diarrhea 2 days. She had been feeling wobbly. Patient was found to be hyponatremic with sodium of 117. She's been receiving IV fluids and nephrology is following. Sodium level is improving. She also was found have elevated liver enzymes. Patient reports she has a known history of elevated liver enzymes and was diagnosed with a fatty liver. She reports that she has a past history of social drinking mostly on the weekends she would drink about 3 glasses of wine. However been a few years since her last alcoholic beverage. Her hepatitis panel is negative. Abdominal ultrasound had shown a coarsened liver correlate for hepatocellular disease. She has a history of cholecystectomy. She denies any abdominal pain. Her vomiting and diarrhea have resolved. Surgical service consulted in regards to elevated liver enzymes. No GI service available this week. PAST MEDICAL HISTORY: See below PAST SURGICAL HISTORY: See below MEDICATIONS: See below ALLERGIES: See below SOCIAL HISTORY: No illicit drug use. REVIEW OF SYSTEMS: CONSTITUTIONAL: Denies fever or chills. HEENT: Denies blurred vision, vision changes, or eye pain. Denies hemoptysis CARDIOVASCULAR: Denies chest pain or pressure. RESPIRATORY: No shortness of breath. GASTROINTESTINAL: See HPI for pertinent findings HEMATOLOGIC: Denies bleeding disorders. GENITOURINARY: Denies any blood in urine or increased urinary frequency. SKIN: Denies pruitis. Denies rash. PHYSICAL EXAM: VITAL SIGNS: Reviewed GENERAL: Well-developed in no acute distress. HEENT: No sclera icterus. ABDOMEN: Soft. Nondistended. Nontender NEUROLOGIC: Alert and oriented. Cranial nerves II through XII grossly intact. LABORATORY DATA: WBC 13.3 down to 7.22 Hgb 13.6 platelets 373 Sodium 119 up to 128 Potassium 3.3 Creatinine 0.4 AST 960 down to 366 ALT 388 down to 298 total bilirubin 0.6 Hepatitis panel negative IMAGING: Abdominal ultrasound coarsened echotexture to the liver. Correlate with serum markers for hepatocellular disease. No evidence for ductal dilation. Right renal complex cyst with septation. Right renal cortical calcification. Abdominal aortic fusiform dilation measuring 2.9 cm. Gallbladder surgically absent. ASSESSMENT: 1. Transaminitis. LFTs trending down 2. Nausea, vomiting and diarrhea resolved 3. Hyponatremia followed by nephrology 4. Altered mental status 5. History of fatty liver and prior alcohol use PLAN: -Recommend that patient follows up with GI service outpatient -Continue to monitor LFTs -Continue IV fluids Physician Skip Tender note has been reviewed by physician. Signing provider agrees with the documented findings, assessment, and plan of care. I have personally seen and examined the patient, reviewed the MAIL PROCESSING EQUIPMENT MECHANIC /PAs history, exam and MDM and agree with the assessment and plan as written. Based on total visit time, I have performed more than 50% of the visit. As above: Apparently we are consulted for elevated liver enzymes. These are improving. Patient was found confused. History of previous elevated liver enzymes and worked up in [place]. Was told she had fatty liver. Patient had previous cholecystectomy 5 years ago for biliary dyskinesia. This does not appear to be a surgical issue. Defer management of elevated liver enzymes to GI. We'll sign off. Past Medical History Past Medical History: Hypertension Additional Past Medical History / Comment(s): low potassium History of Any Multi-Drug Resistant Organisms: None Reported Past Surgical History: Cholecystectomy Past Anesthesia/Blood Transfusion Reactions: No Reported Reaction Past Psychological History: Anxiety Smoking Status: Current every day smoker Past Alcohol Use History: None Reported Past Drug Use History: None Reported Medications and Allergies Home Medications Medication Instructions Recorded Confirmed Type ALPRAZolam [Xanax] 1 mg PO TID 01/06/23 01/06/23 History Anastrozole 1 mg PO DAILY 01/06/23 01/06/23 History Aspirin 81 mg PO DAILY 01/06/23 01/06/23 History Atorvastatin [Lipitor] 80 mg PO DAILY 01/06/23 01/06/23 History Chlorthalidone 25 mg PO DAILY 01/06/23 01/06/23 History Metoprolol Succinate [Toprol XL] 50 mg PO DAILY 01/06/23 01/06/23 History Omeprazole 20 mg PO DAILY 01/06/23 01/06/23 History Potassium Chloride ER [K-Dur 10] 10 meq PO DAILY 01/06/23 01/06/23 History Sertraline [Zoloft] 150 mg PO DAILY 01/06/23 01/06/23 History amLODIPine [Norvasc] 10 mg PO DAILY 01/06/23 01/06/23 History busPIRone HCL 15 mg PO TID 01/06/23 01/06/23 History lisinopriL 40 mg PO DAILY 01/06/23 01/06/23 History Allergies Allergy/AdvReac Type Severity Reaction Status Date / Time amoxicillin Allergy Anaphylaxis Verified 01/06/23 21:50 ampicillin Allergy Anaphylaxis Verified 01/06/23 21:50 Surgical - Exam Vital Signs Temp Pulse Resp BP Pulse Ox 98.2 F 72 18 142/88 96 01/06/23 20:06 01/06/23 20:06 01/06/23 20:06 01/06/23 20:06 01/06/23 20:06 Results - Labs 01/08/23 06:52 01/08/23 10:28 Abnormal Lab Results - Last 24 Hours (Table) 01/07/23 01/07/23 01/07/23 Range/Units 15:14 15:14 19:18 MPV (9.5-12.2) FL Sodium 123 L (137-145) mmol/L Potassium 3.1 L (3.5-5.1) mmol/L Chloride (96-109) mmol/L Carbon Dioxide (22-30) mmol/L Creatinine (0.6-1.5) mg/dL BUN/Creatinine Ratio (12.00-20.00) Ratio AST (13-35) U/L ALT (8-44) U/L Total Protein (6.2-8.2) d/dL Ur Random Sodium 25 L (40-220) mmol/L 01/08/23 01/08/23 01/08/23 Range/Units 06:52 06:52 10:28 MPV 8.4 L (9.5-12.2) FL Sodium 133 L 128 L (137-145) mmol/L Potassium 3.0 L 3.3 L (3.5-5.1) mmol/L Chloride 94 L 91 L (96-109) mmol/L Carbon Dioxide 32 H (22-30) mmol/L Creatinine 0.4 L (0.6-1.5) mg/dL BUN/Creatinine Ratio 30.00 H (12.00-20.00) Ratio AST 366 H (13-35) U/L ALT 298 H (8-44) U/L Total Protein 5.8 L (6.2-8.2) d/dL Ur Random Sodium (40-220) mmol/L Diabetes panel 01/07/23 01/07/23 01/08/23 Range/Units 15:14 15:14 06:52 Sodium 123 L 133 L (137-145) mmol/L Potassium 3.1 L 3.0 L (3.5-5.1) mmol/L Chloride 94 L (96-109) mmol/L Carbon Dioxide 28.0 (21.6-31.8) mmol/L BUN 12.0 (9.0-27.0) mg/dL Creatinine 0.4 L (0.6-1.5) mg/dL Glucose 94 (70-110) mg/dL Calcium 9.1 (8.7-10.3) mg/dL AST 366 H (13-35) U/L ALT 298 H (8-44) U/L Alkaline Phosphatase 46 (41-126) U/L Total Protein 5.8 L (6.2-8.2) d/dL Albumin 4.0 (3.8-4.9) d/dL 01/08/23 Range/Units 10:28 Sodium 128 L (137-145) mmol/L Potassium 3.3 L (3.5-5.1) mmol/L Chloride 91 L (96-109) mmol/L Carbon Dioxide 32 H (21.6-31.8) mmol/L BUN (9.0-27.0) mg/dL Creatinine (0.6-1.5) mg/dL Glucose (70-110) mg/dL Calcium (8.7-10.3) mg/dL AST (13-35) U/L ALT (8-44) U/L Alkaline Phosphatase (41-126) U/L Total Protein (6.2-8.2) d/dL Albumin (3.8-4.9) d/dL Thyroid panel 01/07/23 Range/Units 04:44 TSH 1.240 (0.465-4.680) mIU/L Calcium panel 01/08/23 Range/Units 06:52 Calcium 9.1 (8.7-10.3) mg/dL Albumin 4.0 (3.8-4.9) d/dL Pituitary panel 01/07/23 01/07/23 01/07/23 Range/Units 04:44 15:14 15:14 Sodium 123 L (137-145) mmol/L Potassium 3.1 L (3.5-5.1) mmol/L Chloride (96-109) mmol/L Carbon Dioxide (21.6-31.8) mmol/L BUN (9.0-27.0) mg/dL Creatinine (0.6-1.5) mg/dL Glucose (70-110) mg/dL Calcium (8.7-10.3) mg/dL TSH 1.240 (0.465-4.680) mIU/L 01/08/23 01/08/23 Range/Units 06:52 10:28 Sodium 133 L 128 L (137-145) mmol/L Potassium 3.0 L 3.3 L (3.5-5.1) mmol/L Chloride 94 L 91 L (96-109) mmol/L Carbon Dioxide 28.0 32 H (21.6-31.8) mmol/L BUN 12.0 (9.0-27.0) mg/dL Creatinine 0.4 L (0.6-1.5) mg/dL Glucose 94 (70-110) mg/dL Calcium 9.1 (8.7-10.3) mg/dL TSH (0.465-4.680) mIU/L Adrenal panel 01/07/23 01/07/23 01/08/23 Range/Units 15:14 15:14 06:52 Sodium 123 L 133 L (137-145) mmol/L Potassium 3.1 L 3.0 L (3.5-5.1) mmol/L Chloride 94 L (96-109) mmol/L Carbon Dioxide 28.0 (21.6-31.8) mmol/L BUN 12.0 (9.0-27.0) mg/dL Creatinine 0.4 L (0.6-1.5) mg/dL Glucose 94 (70-110) mg/dL Calcium 9.1 (8.7-10.3) mg/dL Total Bilirubin 0.6 (0.3-1.2) mg/dL AST 366 H (13-35) U/L ALT 298 H (8-44) U/L Alkaline Phosphatase 46 (41-126) U/L Total Protein 5.8 L (6.2-8.2) d/dL Albumin 4.0 (3.8-4.9) d/dL 01/08/23 Range/Units 10:28 Sodium 128 L (137-145) mmol/L Potassium 3.3 L (3.5-5.1) mmol/L Chloride 91 L (96-109) mmol/L Carbon Dioxide 32 H (21.6-31.8) mmol/L BUN (9.0-27.0) mg/dL Creatinine (0.6-1.5) mg/dL Glucose (70-110) mg/dL Calcium (8.7-10.3) mg/dL Total Bilirubin (0.3-1.2) mg/dL AST (13-35) U/L ALT (8-44) U/L Alkaline Phosphatase (41-126) U/L Total Protein (6.2-8.2) d/dL Albumin (3.8-4.9) d/dL
[2023-01-08 14:34] LABS: Prothrombin Time 10.8 sec (9.9-11.9)
[2023-01-08] MEDS ORDERED: traMADol 50 MG TAB PO PRN (16:26)
[2023-01-08] MEDS: POTASSIUM CHLORIDE ER 20 MEQ TAB.ER PO SCH ×2 (21:33→23:04)
[2023-01-09] MEDS ORDERED: POTASSIUM CHLORIDE ER 20 MEQ TAB.ER PO STA (02:57)
[2023-01-09 08:03] VITALS: RESP 18; TEMP 98.1
[2023-01-09] MEDS: amLODIPine 10 MG TAB PO SCH (08:12)
[2023-01-09] MEDS: NICOTINE 21MG/24HR PATCH TRANSDERM SCH (08:12)
[2023-01-09] MEDS: ASPIRIN 81 MG PO SCH (08:12)
[2023-01-09] MEDS: ANASTROZOLE 1 MG TAB PO SCH (08:12)
[2023-01-09] MEDS: busPIRone HCl 10 MG TAB PO SCH (08:13)
[2023-01-09] MEDS: ENOXAPARIN 40 MG/0.4 ML SYRINGE SQ SCH (08:13)
[2023-01-09] MEDS: SERTRALINE 100 MG TAB PO SCH (08:14)
[2023-01-09] MEDS: METOPROLOL SUCCINATE (ER) 50 MG TAB.ER.24H PO SCH (08:14)
[2023-01-09] MEDS: POTASSIUM CHLORIDE ER 10 MEQ TAB.ER.PRT PO SCH (08:14)
[2023-01-09] MEDS: PANTOPRAZOLE 40 MG TABLET PO SCH (08:14)
[2023-01-09] MEDS: ALPRAZolam 1 MG TAB PO SCH (08:15)
[2023-01-09 09:10] LABS: ALT 236 U/L (8-44); AST 174 U/L (13-35); Albumin 3.9 d/dL (3.8-4.9); Albumin/Globulin Ratio 2.17 Ratio (1.60-3.17); Alkaline Phosphatase 59 U/L (41-126); Blood Urea Nitrogen 12.9 mg/dL (9.0-27.0); Calcium 9.1 mg/dL (8.7-10.3); Carbon Dioxide 26.5 mmol/L (21.6-31.8); Chloride 100 mmol/L (96-109); Globulin 1.8 d/dL (1.6-3.3); Glucose 90 mg/dL (70-110); Potassium 4.4 mmol/L (3.5-5.5); Sodium 136 mmol/L (135-145); Total Bilirubin 0.3 mg/dL (0.3-1.2); Total Protein 5.7 d/dL (6.2-8.2)
[2023-01-09 09:13] LABS: INR 1.01 sec (0.93-1.11); Prothrombin Time 10.9 sec (9.9-11.9)
--- NOTE | 2023-01-09 12:01 | P.DS ---
Providers Date of admission: 01/06/23 22:57 Expected date of discharge: 01/09/23 Attending physician: Reji Russell MD Consults: 01/06/23 22:57 Consult Physician Urgent Consulting Provider: Ngozi Mcdonald Consult Reason/Comments: electrolyte imbalance Do you want consulting provider notified?: Yes, Notify in am Primary care physician: Prabhu Moran MD Hospital Course: * 67-year-old lady with past medical history significant for hypertension, history of breast cancer presented to the emergency department with episode of confusion. Patient was apparently at home when she was found on the floor by her . And confused. Patient had complaints of increased weakness. Patient denies passing out. She does mention that she does remember the events from home however she does not feel she fell. Patient denies any history of headache, nausea, vomiting, diarrhea abdominal pain. * Workup initiated in ER included basic metabolic panel which showed significant hyponatremia sodium of 119, potassium of 3.2 BUN of 24 creatinine 0.5 * She was noted to have significant elevation in liver profile AST 388 AST of 960 * Troponin obtained was within normal limits * TSH and cortisol levels within normal limits urine drug screen negative * she at time of evaluation in ER was alert and oriented to person place and situation mentation had improved patient was requesting her Xanax * 01/08/23: Patient seen and evaluated at bedside, mentation seems to have improved, patient is alert and oriented to person place and situation. Serum sodium levels improving as well. Noted to have persistent hypokalemia potassium replaced. Liver profile improvement. Ultrasound abdomen reviewed shows coarse echo resection of the liver incidental finding of complex renal cyst noted, abdominal aortic fusiform aneurysm 2.9 cm Will need outpatient follow-up with PCP * 01/09/23: Patient seen and evaluated bedside, patient alert and oriented 4. Liver profile improving sodium levels improving. Patient counseled regarding exercise use of Xanax. Patient will need follow-up with gastroenterology information provided lady liver profile in one week post discharge. PHYSICAL EXAMINATION: GENERAL: The patient is alert and oriented x 3, Well developed, well nourished. HEENT: Pupils are round and equally reacting to light. EOMI.. CARDIOVASCULAR: S1 and S2 present. No murmurs, rubs, or gallops. PULMONARY: Chest is clear to auscultation, no wheezing or crackles. ABDOMEN: Soft, nontender, nondistended, normoactive bowel sounds. No palpable organomegaly. MUSCULOSKELETAL: No joint swelling or deformity. EXTREMITIES: No cyanosis, clubbing, or pedal edema. NEUROLOGICAL: Gross neurological examination did not reveal any focal deficits. SKIN: No rashes. Assessment: Assessment and plan * Syncopal episode with hyponatremia * Elevated liver profile * Hypertension * History of anxiety * History of breast cancer status post treatment * In regards to acute hyponatremia Na 119> 123> 128> 130>136 , patient appropriately resuscitated with fluids, chlorthalidone discontinued symptoms have improved. Patient to be discharged home * In regards to hypertension continue metoprolol, chlorthalidone placed on hold since it can contribute to hyponatremia, continue lisinopril * In regards to elevated liver profile, hepatitis screen negative, ultrasound abdomen completed, reviewed. Will need outpatient follow-up with PCP liver profile trending down PT/INR within normal limits continue to follow up on synthetic function of liver avoid hepatotoxic medications, outpatient follow- up with gastroenterology recommended. Lipitor discontinued does cause hepatotoxicity * In regards to anxiety continue patient on BuSpar, Zoloft and Xanax, patient counseled regarding prescription drug misuse Patient Condition at Discharge: Fair Plan - Discharge Summary Discharge Rx Participant: Yes New Discharge Prescriptions: Continue lisinopriL 40 mg PO DAILY busPIRone HCL 15 mg PO TID Omeprazole 20 mg PO DAILY Metoprolol Succinate [Toprol XL] 50 mg PO DAILY Anastrozole 1 mg PO DAILY ALPRAZolam [Xanax] 1 mg PO TID Sertraline [Zoloft] 150 mg PO DAILY Potassium Chloride ER [K-Dur 10] 10 meq PO DAILY amLODIPine [Norvasc] 10 mg PO DAILY Aspirin 81 mg PO DAILY Discontinued Atorvastatin [Lipitor] 80 mg PO DAILY Chlorthalidone 25 mg PO DAILY Discharge Medication List ALPRAZolam [Xanax] 1 mg PO TID 01/06/23 [History] Anastrozole 1 mg PO DAILY 01/06/23 [History] Aspirin 81 mg PO DAILY 01/06/23 [History] Metoprolol Succinate [Toprol XL] 50 mg PO DAILY 01/06/23 [History] Omeprazole 20 mg PO DAILY 01/06/23 [History] Potassium Chloride ER [K-Dur 10] 10 meq PO DAILY 01/06/23 [History] Sertraline [Zoloft] 150 mg PO DAILY 01/06/23 [History] amLODIPine [Norvasc] 10 mg PO DAILY 01/06/23 [History] busPIRone HCL 15 mg PO TID 01/06/23 [History] lisinopriL 40 mg PO DAILY 01/06/23 [History] Follow up [facility]ointment(s)/[facility]2 days Alis Parikh MD [STAFF PHYSICIAN] - 1 Week Activity/Diet/Wound Care/Special Instructions: Continue to follow-up with your primary care provider Colby needle liver profile in one week Take Xanax as prescribed do not take extra pills as that can cause injury to liver Discharge Disposition: HOME SELF-CARE
[2023-01-09 12:48] VITALS: BP 137/85; PULSE 73
--- NOTE | 2023-01-09 21:10 | P.PN ---
Subjective Patient is seen for follow-up for hyponatremia which is hypovolemic and improved with normal saline. Serum sodium 136 today. Patient has been tolerating oral intake No diarrhea or vomiting. Objective - Vital Signs Vital signs: Vital Signs Temp 98.1 F 01/09/23 07:35 Pulse 73 01/09/23 12:48 Resp 18 01/09/23 08:40 BP 137/85 01/09/23 12:48 Pulse Ox 95 01/09/23 12:48 FiO2 Intake & Output 01/09/23 01/09/23 01/10/23 06:59 18:59 06:59 Intake Total 240 Balance 240 Intake: Oral 240 Other: Voiding Method Toilet Toilet # Voids 1 - Exam Patient is awake, comfortable, in no acute distress Examination of the heart S1 and S2 Examination of the lungs bilateral breath sounds are heard Abdomen is soft nontender Examination of lower extremities shows no evidence of edema SOUR BLEACHING PLEATER exam grossly intact. - Labs CBC & Chem 7: 01/08/23 06:52 01/09/23 05:36 Labs: Abnormal Lab Results - Last 24 Hours (Table) 01/09/23 Range/Units 05:36 BUN/Creatinine Ratio 21.50 H (12.00-20.00) Ratio AST 174 H (13-35) U/L ALT 236 H (8-44) U/L Total Protein 5.7 L (6.2-8.2) d/dL Assessment and Plan Assessment: 1. Hyponatremia , hypovolemic and improved with normal saline. Patient was also maintained on chlorthalidone which is currently on hold. Urine osmolality 280, urine sodium was 25. Sodium 136 2. Hypokalemia secondary to diarrhea, diuretics and decrease intake, status post replacement 3. Metabolic alkalosis secondary to volume contraction and diuretics 4. Elevated liver enzymes possibly shock liver. Patient was maintained on statins which are currently on hold. Plan: Patient can be discharged. Repeat labs in 2-3 days as op Encourage increased oral intake particularly protein Continue to hold off on chlorthalidone post discharge.
--- NOTE | 2023-01-10 15:51 | CDI ---
Documentation Clarification Form Date: 01/10/2023 03:22:12 PM From: Sarah Rowan Admit Date: 01/06/2023 10:57:00 PM Patient Name: Sondra Pizarro Visit Number: [id number] Discharge Date: 01/09/2023 02:02:00 PM ATTENTION: The Clinical Documentation Specialists (CDI) and [facility] Coding Staff appreciate your assistance in clarifying documentation. Please respond to the clarification below the line at the bottom and electronically sign. The CDI & [facility] Coding staff will review the response and follow-up if needed. Please note: Queries are made part of the Legal Health Record. If you have any questions, please contact the author of this message via ITS. Dr. Shlomo Julio Your patient has the documented symptom of Altered Mental Status in the History and Physical 01/07/23. Additional clarification regarding the etiology/cause of this symptom is requested. History/Risk Factors: patient is a 67 year old female with a past history of HTN and breast cancer. She presented to the ED with episodes of altered mental status and confusion. Patients found her on the floor of their kitchen. Had recently had diarrhea. Clinical Indicators: patient was found to have hyponatremia, elevated liver profile, hypokalemia, and hypochloremia Labs: WBC 13.3, Sodium 119, Potassium 3.2, Chloride 80, CO2 34, BUN 24, Creat .50, AST 960. ALT 388, Urine osmolality 280, Ur random sodium 25 X Ray: No acute cardiopulmonary disease process, COPD changes Abdominal Ultrasound: coarsened echotexture to liver, no evidence for ductal dilation, right renal complex cyst with septation, right renal cortical calcification, abdominal aortic fusiform dilation Treatment: IV fluids, continue metoprolol, chlorthalidone placed on hold, hepatitis screen was negative Please clarify the etiology of the symptom of Altered Mental Status: [y ] Metabolic Encephalopathy due to electrolyte abnormalities [ ] Altered Mental Status/Confusion [ ] Other condition (please specify) [ ] Unable to determine MTDD
--- NOTE | 2023-01-10 15:52 | CDI ---
Documentation Clarification Form Date: 01/10/2023 03:22:12 PM From: Sarah Rowan Admit Date: 01/06/2023 10:57:00 PM Patient Name: Sondra Pizarro Visit Number: [id number] Discharge Date: 01/09/2023 02:02:00 PM ATTENTION: The Clinical Documentation Specialists (CDI) and [facility] Coding Staff appreciate your assistance in clarifying documentation. Please respond to the clarification below the line at the bottom and electronically sign. The CDI & [facility] Coding staff will review the response and follow-up if needed. Please note: Queries are made part of the Legal Health Record. If you have any questions, please contact the author of this message via ITS. Dr. Ngozi Mcdonald Possible liver shock is documented in your consult note 01/07/23, but is not noted in subsequent documentation. Clarification is requested. History/Risk Factors: patient is a 67 year old female who was transferred from an outside facility. The patient presented due to mental status changes. She was found at home by her on the kitchen floor confused. Has increased weakness, and admitted to having diarrhea for about 2 days. Clinical Indicators: patient has elevated liver enzymes, was maintained on statins which are currently on hold. Per surgical consult note- patient reports she has a known history of elevated liver enzymes and was diagnosed with a fatty liver. She reports a past history of social drinking, however it has been a few years since her last alcoholic beverage. Her hepatitis panel is negative. Diagnosed with transaminitis, history of fatty liver and prior alcohol use. Treatment: monitor LFTs, continue IV fluids Please clarify if the liver shock is: [ ] Liver shock confirmed, remains under treatment [ x ] Liver shock confirmed, resolved [ ] Liver shock ruled out [ ] Other condition, please specify [ ] Unable to determine shock liver from hypotension, improving MTDD
== END 2023-01-09 14:02 | disposition home or self-care (01) | DRG 640 ==
LOC: EC 20:00 → 3SCARD 22:57 → 5NMEDONC 01-07 14:55
PROVIDERS: ADMIT Internal Medicine; ATTEND Internal Medicine
DX: E87.1 Hypo-osmolality and hyponatremia (principal); G93.41 Metabolic encephalopathy; K72.00 Acute and subacute hepatic failure without coma; E87.6 Hypokalemia; E87.8 Other disorders of electrolyte and fluid balance, not elsewhere classified; R74.01 Elevation of levels of liver transaminase levels; N28.1 Cyst of kidney, acquired; R19.7 Diarrhea, unspecified; K76.0 Fatty (change of) liver, not elsewhere classified; I71.40 Abdominal aortic aneurysm, without rupture, unspecified; I10 Essential (primary) hypertension; F41.9 Anxiety disorder, unspecified; W18.30XA Fall on same level, unspecified, initial encounter; Y92.010 Kitchen of single-family (private) house as the place of occurrence of the external cause; F17.200 Nicotine dependence, unspecified, uncomplicated; E86.1 Hypovolemia; T50.2X5A Adverse effect of carbonic-anhydrase inhibitors, benzothiadiazides and other diuretics, initial encounter; E87.3 Alkalosis; Z88.0 Allergy status to penicillin; Z85.3 Personal history of malignant neoplasm of breast; Z79.899 Other long term (current) drug therapy; Z79.82 Long term (current) use of aspirin; Z79.811 Long term (current) use of aromatase inhibitors
CPT/HCPCS: 36415; 71046; 76705; 80051; 80053; 80074; 80306; 80320; 82140; 82533; 83735; 83935; 84132; 84295; 84300; 84443; 84484; 85025; 85610; 85730; 93005; 96365; 96366; 99285

== ENCOUNTER → 2023-01-17 | Outpatient (CLI) | payer MEDICARE ==
[2023-01-18 03:15] LABS: Albumin 4.5 d/dL (3.8-4.9); Protein, Total 6.7 d/dL (6.2-8.2)
[2023-01-18 03:55] LABS: Ceruloplasmin 27.1 mg/dL (20.0-60.0)
[2023-01-18 04:00] LABS: ALT 65 U/L (8-44); AST 37 U/L (13-35); Albumin 4.6 d/dL (3.8-4.9); Albumin/Globulin Ratio 2.09 Ratio (1.60-3.17); Alkaline Phosphatase 72 U/L (41-126); Blood Urea Nitrogen 12.3 mg/dL (9.0-27.0); Calcium 10.1 mg/dL (8.7-10.3); Carbon Dioxide 22.4 mmol/L (21.6-31.8); Chloride 102 mmol/L (96-109); Ferritin 51.7 ng/mL (10.0-291.0); Globulin 2.2 d/dL (1.6-3.3); Glucose 83 mg/dL (70-110); Iron 84 UG/DL (50-170); Potassium 4.2 mmol/L (3.5-5.5); Sodium 138 mmol/L (135-145); Total Bilirubin 0.4 mg/dL (0.3-1.2); Total Iron Binding Capacity 353 UG/DL (228-460); Total Protein 6.8 d/dL (6.2-8.2)
[2023-01-18 04:50] LABS: Basophils # (A) 0.05 X 10*3/uL (0.00-0.10); Basophils % (A) 0.5 %; Eosinophils # (A) 0.11 X 10*3/uL (0.04-0.35); Eosinophils % (A) 1.1 %; HCT 41.2 % (37.2-46.3); HGB 13.8 d/dL (12.0-15.0); Lymphocytes # (A) 1.65 X 10*3/uL (0.90-5.00); Lymphocytes % (A) 16.2 %; MCH 32.3 pg (27.0-32.0); MCHC 33.5 d/dL (32.0-37.0); MCV 96.5 FL (80.0-97.0); Mean Platelet Volume 8.3 FL (9.5-12.2); Monocytes # (A) 0.91 X 10*3/uL (0.20-1.00); Monocytes % (A) 8.9 %; NRBC Per 100 WBC 0 X 10*3/uL (0.00-0.01); Neutrophils # (A) 7.45 X 10*3/uL (1.80-7.70); Platelet Count 497 X 10*3/uL (140-440); RBC 4.27 X 10*6/uL (4.10-5.20); RDW 14.3 % (11.5-14.5)
[2023-01-18 23:10] LABS: Gamma Globulin 0.63 d/dL (0.70-1.50)
== END | disposition home or self-care (01) ==
LOC: LABWHC1 15:12
PROVIDERS: ATTEND Internal Medicine Gastroenterology
DX: R74.01 Elevation of levels of liver transaminase levels (principal)
CPT/HCPCS: 36415; 80053; 82103; 82390; 82728; 83516; 83540; 83550; 84165; 85025; 86038